=== PATIENT | male | born 2005 | race Caucasian/White ===

== ENCOUNTER 2024-06-18 04:12 | Emergency (ER) | payer SELFPAY | END 2024-06-18 04:51 | LOC: CSHERS 04:12 | DX: S60.416A Abrasion of right little finger, initial encounter (principal); V43.62XA Car passenger injured in collision with other type car in traffic accident, initial encounter; W22.10XA Striking against or struck by unspecified automobile airbag, initial encounter | CPT/HCPCS: 99284 ==